=== PATIENT | male | born 1990 | race Caucasian/White ===

== ENCOUNTER 2022-07-07 15:13 | Outpatient (CLI) | payer OTHER, SELFPAY ==
[2022-07-07 20:08] LABS: Basophils Percent Auto 0.4 % (0.2-1.2); Eosinophils Absolute Auto 0.1 K/mm3 (0-0.3); Eosinophils Percent Auto 2.7 % (0-4.4); Hematocrit 39.9 % (42.0-52.0); Hemoglobin 13.4 g/dL (14.0-18.0); Immature Granulocyte Absolute 0.01 K/mm3 (0.00-0.031); Immature Granulocyte Percent A 0.2 % (0-0.5); Lymphocytes Percent Auto 38.6 % (18.3-44.2); Mean Corpuscular HGB Conc 33.6 g/dl (32-36); Mean Corpuscular Hemoglobin 31.9 pg (26-34); Mean Platelet Volume 11.6 fl (7.4-10.4); Monocytes Absolute Auto 0.5 K/mm3 (0.1-0.6); Monocytes Percent Auto 8.7 % (2.6-8.5); Neutrophils Absolute Auto 2.6 K/mm3 (1.3-6.7); Neutrophils Percent Auto 49.4 % (45.5-73.1); Platelet Count Result 165 k/mm3 (150-375); Red Cell Distribution Width 12.9 % (11.5-14.5); White Blood Count 5.2 K/mm3 (4.5-10.0)
[2022-07-07 20:16] LABS: Alanine Aminotransferase 18 U/L (6-50); Albumin Level 4.4 g/dL (3.5-5.1); Alkaline Phosphatase 65 U/L (38-126); Anion Gap 4 mmol/L (8-16); Aspartate Amino Transferase 44 U/L (17-59); Bilirubin,Total 0.3 mg/dL (0.2-1.3); Blood Urea Nitrogen 12 mg/dL (9-20); Calcium 9.2 mg/dL (8.4-10.2); Carbon Dioxide 31 mmol/L (22-30); Chloride 102 mmol/L (98-107); Estimated Glomerular Filt Rate > 60; Glucose 72 mg/dL (65-110); Phenytoin Dilantin 3 ug/mL (10-20); Potassium 4.1 mmol/L (3.4-5.0); Sodium 137 mmol/L (137-145)
== END 2022-07-07 15:14 | disposition home or self-care (01) ==
LOC: ANHGOSHLAB 15:15
PROVIDERS: PCP Family Medicine; Visit Provider Family Medicine
DX: G40.909 Epilepsy, unspecified, not intractable, without status epilepticus (principal)
CPT/HCPCS: 36415; 80053; 80185; 85025

== ENCOUNTER 2022-08-15 09:08 | Emergency (ER) | payer OTHER, SELFPAY ==
--- NOTE | ~2022-08-15 | XR_ITS ---
XR chest 2V DATE: 08/15/2022 09:36 INDICATION: Seizure. Evaluate for aspiration. TECHNIQUE: AP and lateral views COMPARISON: None FINDINGS: No pulmonary infiltrate or consolidation, pleural effusion or pulmonary vascular congestion or pneumothorax. Normal heart size. No hilar or mediastinal enlargement Included skeletal structures are unremarkable. IMPRESSION: Negative Reviewed, dictated and finalized at location A. IMPRESSION: Negative
[2022-08-15 09:15] VITALS: BP 110/72; PULSE 59; RESP 18; TEMP 36.4; O2SAT 100
--- NOTE | 2022-08-15 09:28 | ED.SEIZURE ---
HPI - Seizure General Chief Complaint: Seizure Stated Complaint: seizure Time Seen by Provider: 08/15/22 09:16 Source: patient and family Mode of arrival: EMS Limitations: no limitations History of Present Illness HPI Narrative: Patient is a 31 y/o male who presents to the ED via EMS with c/o seizure. at bedside assisted in providing information. Patient has a Hx of seizure disorder for the last 5-7 years. He has seen an epileptologist in the past. Patient has been on Keppra 1000mg BID and Phenytoin 200mg BID for his seizures. His primary care doctor took him off his medications 3 to 4 days ago to start a 30-day Holter monitor to determine if these epileptic episodes were related to syncope versus arrhythmia. Patient had a brief seizure episode yesterday, which captured on video camera. This morning, patient had another seizure episode, which was longer and lasted approximately 4 minutes. Patient did have a postictal period after today's episode, which EMS reported upon their arrival. Patient states he feels like he is coming back to normal. He does complain of muscle soreness and fatigue, but denies nausea, vomiting, chest pain, shortness of breath, abdominal pain, headache, dizziness, lightheadedness. Denied any head injury. Denied incontinence. Patient did bite his tongue in today's episode. Related Data Home Medications Medication Instructions Recorded Confirmed cholecalciferol (vitamin D3) 50 50 mcg PO DAILY 07/07/22 07/09/22 mcg/drop (2,000 unit/drop) oral drops levetiracetam 1,000 mg tablet 1,000 mg PO Q12H 07/07/22 07/09/22 Allergies Allergy/AdvReac Type Severity Reaction Status Date / Time No Known Allergies Allergy Unverified 07/09/22 15:41 Review of Systems Review of Systems: CONSTITUTIONAL: Denies fever, chills, or sweats. EYES: Denies visual changes. ENT: See HPI. CARDIOVASCULAR: Denies chest pain. RESPIRATORY: Denies dyspnea. GASTROINTESTINAL: Denies abdominal pain, nausea, vomiting. GENITOURINARY: Denies incontinence, dysuria or hematuria. MUSCULOSKELETAL: Reports myalgia. NEUROLOGIC: See HPI. All systems reviewed & are unremarkable except as noted in HPI and below PMFSH Past Medical History Medical History Seizure disorder Surgical History Surgical History H/O right knee surgery Social History Social History Smoking status: Smoker, status unknown Smokeless tobacco user: chewing tobacco Alcohol intake: never Lack of Transportation: No Lack of Food: Never True Current Housing: I Have Housing Concerned About Future Housing: No Difficulty Paying Gas/Electric Bills: No Difficulty Paying for Meds: No Currently Unemployed: No Education: High School Diploma/GED Difficulty w/ Childcare or Family Care: No Exam Narrative: GENERAL: Well appearing, thin, non-toxic, in no acute distress. HEAD: Normocephalic, atraumatic. EYES: PERRL/EOMI, conjunctivae clear bilaterally. Slight bilateral fatigable nystagmus. ENT: MMs slightly dry. Small bite to tip of tongue, no active bleeding. NECK: Supple. No adenopathy, no masses. RESPIRATORY: Airway patent, respirations nonlabored. Clear to auscultation bilaterally, no rales, rhonchi, wheezing. CARDIOVASCULAR: Regular rate and rhythm without murmurs, rubs, or gallops. Radial and pedal pulses 2+ and equal bilaterally. ABDOMINAL: Soft, nontender, nondistended, no hepatosplenomegaly. Normoactive BS. MUSCULOSKELETAL: Moves all extremities. Strength/ROM intact without gross deformities. No edema. SKIN: Warm, dry, normal color. No rashes. NEURO: A&O X4. Speech clear. Follows commands. CN II-XII intact. Sensation grossly intact. No ataxic movements. Strength 5/5 in upper and lower extremities bilaterally. [id number]-[id number]-hged and [id number]-[id number] testing intact bilat
--- NOTE | 2022-08-15 09:30 | ECG_ITS ---
Measurements Intervals [place] Rate: 56 P: 54 NV: 189 QRS: 22 QRSD: 86 T: 36 QT: 395 QTc: 383 Interpretive Statements SINUS BRADYCARDIA BORDERLINE ECG NO PREVIOUS ECG AVAILABLE FOR COMPARISON Electronically Signed On 08-15-2022 13:53:58 CDT by Butch Marte M.D.
[2022-08-15 10:13] LABS: Basophils Percent Auto 0.1 % (0.2-1.2); Eosinophils Percent Auto 0.3 % (0-4.4); Hematocrit 42.5 % (42.0-52.0); Hemoglobin 14.3 g/dL (14.0-18.0); Immature Granulocyte Absolute 0.05 K/mm3 (0.00-0.031); Immature Granulocyte Percent A 0.5 % (0-0.5); Lymphocytes Absolute Auto 0.78 K/mm3 (0.9-3.2); Lymphocytes Percent Auto 7.6 % (18.3-44.2); Mean Corpuscular HGB Conc 33.6 g/dl (32-36); Mean Corpuscular Hemoglobin 32.3 pg (26-34); Mean Corpuscular Volume 95.9 fl (80-100); Mean Platelet Volume 11.1 fl (7.4-10.4); Monocytes Absolute Auto 0.6 K/mm3 (0.1-0.6); Monocytes Percent Auto 6.1 % (2.6-8.5); Neutrophils Absolute Auto 8.8 K/mm3 (1.3-6.7); Neutrophils Percent Auto 85.4 % (45.5-73.1); Platelet Count Result 166 k/mm3 (150-375); Red Blood Count 4.43 M/mm3 (4.6-6.20); Red Cell Distribution Width 12.8 % (11.5-14.5); White Blood Count 10.3 K/mm3 (4.5-10.0)
[2022-08-15 10:29] LABS: Lactic Acid Reflex 2.5 mmol/L (0.7-2.0)
[2022-08-15 10:36] LABS: Alanine Aminotransferase 29 U/L (6-50); Albumin Level 4.6 g/dL (3.5-5.1); Alkaline Phosphatase 78 U/L (38-126); Anion Gap 10 mmol/L (8-16); Aspartate Amino Transferase 35 U/L (17-59); Bilirubin,Total 0.4 mg/dL (0.2-1.3); Blood Urea Nitrogen 11 mg/dL (9-20); Calcium 9.1 mg/dL (8.4-10.2); Carbon Dioxide 24 mmol/L (22-30); Chloride 104 mmol/L (98-107); Estimated Glomerular Filt Rate > 60; Glucose 98 mg/dL (65-110); Magnesium 2.1 mg/dL (1.6-2.3); Sodium 138 mmol/L (137-145)
[2022-08-15 10:44] LABS: Troponin I 0.021 ng/mL (0.000-0.034)
[2022-08-15 10:46] VITALS: BP 118/79; PULSE 55; RESP 18; O2SAT 99
[2022-08-15] MEDS: SODIUM CHLORIDE 0.9% IV 1,000 ML 999 ML IV CONT (11:27)
[2022-08-15 13:02] VITALS: BP 119/68; PULSE 55; RESP 12; O2SAT 100
[2022-08-15 13:11] LABS: Reflex Lactic Acid Yes or No Add Lactic
[2022-08-15 13:29] LABS: Lactic Acid 0.8 mmol/L (0.7-2.0)
[2022-08-15 13:44] LABS: Troponin I 0.052 ng/mL (0.000-0.034)
[2022-08-15 14:08] LABS: Prothrombin Time 12.7 Seconds (11.1-14.7)
[2022-08-15] MEDS: ASPIRIN 81 MG CHEWABLE TABLET 324 MG PO (14:08)
[2022-08-15 14:09] VITALS: BP 118/69; PULSE 52; RESP 18; O2SAT 100
[2022-08-15 14:09] LABS: Partial Thromboplastin Time 27.8 SECONDS (22.3-36.8)
[2022-08-15 14:14] LABS: D Dimer 0.38 ug/mL (<0.48)
== END 2022-08-15 14:31 | disposition left against medical advice (07) ==
PROVIDERS: Emergency Provider Physician Assistant; PCP Family Medicine
DX: G40.909 Epilepsy, unspecified, not intractable, without status epilepticus (principal); R77.8 Other specified abnormalities of plasma proteins; R00.1 Bradycardia, unspecified
CPT/HCPCS: 36415; 71046; 80053; 83605; 83735; 84484; 85025; 85380; 85610; 85730; 93005; 96361; 96365; 99284; A9270; J7030

== ENCOUNTER 2022-08-16 13:42 | Outpatient (CLI) | payer OTHER, SELFPAY ==
[2022-08-16 20:16] LABS: Alanine Aminotransferase 33 U/L (6-50); Albumin Level 4.4 g/dL (3.5-5.1); Alkaline Phosphatase 69 U/L (38-126); Anion Gap 7 mmol/L (8-16); Aspartate Amino Transferase 57 U/L (17-59); Bilirubin,Total 0.4 mg/dL (0.2-1.3); Blood Urea Nitrogen 10 mg/dL (9-20); Calcium 9.1 mg/dL (8.4-10.2); Carbon Dioxide 29 mmol/L (22-30); Chloride 105 mmol/L (98-107); Creatine Kinase 752 U/L (55-170); Estimated Glomerular Filt Rate > 60; Glucose 107 mg/dL (65-110); Sodium 141 mmol/L (137-145)
[2022-08-16 20:28] LABS: Troponin I < 0.012 ng/mL (0.000-0.034)
== END 2022-08-16 13:43 | disposition home or self-care (01) ==
LOC: ANHGOSHLAB 13:44
PROVIDERS: PCP Family Medicine; Visit Provider Nurse Practitioner Family
DX: G40.909 Epilepsy, unspecified, not intractable, without status epilepticus (principal); R77.8 Other specified abnormalities of plasma proteins
CPT/HCPCS: 36415; 80053; 82550; 84484

== ENCOUNTER 2022-10-06 14:34 | Outpatient (CLI) | payer OTHER, SELFPAY ==
--- NOTE | 2022-10-06 14:46 | ECHO_ITS ---
Patient Info Name: Vinayak Zavala Age: 32 years : 1990 Gender: Male Ht: 70 in Wt: 150 lbs BSA: 1.83 m2 HR: 61 bpm BP: 124 / 61 mmHg Heart Rhythm: Sinus Rhythm Technical Quality: Good Exam Date: 10/06/2022 2:56 PM Exam Location: [facility] Patient Status: Outpatient Admit Date: 10/06/2022 Staff Ordering Physician: Ryan Barrientos DO Cardiology Consultant: Too Lundberg RDCS Attending Provider: Ryan Barrientos DO Referring Physician: Floyd LEAL; Exam Type: CA echo dop color flow w con Study Info Indications - syncope Complete two-dimensional, color flow and Doppler transthoracic echocardiogram is performed. Summary 1. Complete two-dimensional, color flow and Doppler transthoracic echocardiogram is performed. 2. Left ventricular chamber dimension is mildly enlarged. 3. Left ventricular systolic function is normal, estimated at 60-65%. 4. The left ventricular diastolic function is abnormal. 5. E/e' 10 is mildly elevated. 6. There is trace tricuspid valve regurgitation. 7. No pulmonary hypertension, estimated pulmonary arterial systolic pressure is 6 mmHg. Left Ventricle E/e' 10 is mildly elevated. Left ventricular chamber dimension is mildly enlarged. Left ventricular systolic function is normal, estimated at 60-65%. The left ventricular diastolic function is abnormal. Right Ventricle Right ventricular systolic function is normal and with normal TAPSE 2.1 cm. Right ventricular chamber dimension is normal. Left Atria Left atrial chamber dimension is normal. Right Atria Right atrial chamber dimension is normal. Aortic Valve The aortic valve is trileaflet. There is no aortic valve stenosis. There is no aortic valve regurgitation. Pulmonic Valve There is no pulmonic regurgitation. Mitral Valve There is no mitral valve stenosis. There is no mitral valve regurgitation. Tricuspid Valve There is trace tricuspid valve regurgitation. No pulmonary hypertension, estimated pulmonary arterial systolic pressure is 6 mmHg. Pericardium/Pleural There is no pericardial effusion. Inferior Vena Cava Normal inferior vena cava with >50% collapse upon inspiration consistent with normal right atrial pressure, 5 mmHg. Aorta The aortic root size at the sinus of Valsalva is normal. Left Ventricular Outflow Tract Name Value Normal LVOT 2D LVOT Diameter 2.28 cm LVOT Doppler LVOT Peak Gradient 5 mmHg LVOT Mean Gradient 2 mmHg LVOT VTI 22.86 cm LVOT VTI/AV VTI Ratio 1.05 LVOT Stroke Volume 92.92 ml LVOT CO 5.05 l/min LVOT CI 2.76 L/min/m2 Pulmonic Valve Name Value Normal RVOT Doppler RVOT Peak Gradient 1 mmHg PV Doppler PV Peak Gradient
== END 2022-10-06 14:35 | disposition home or self-care (01) ==
LOC: ANHCARD 14:36
PROVIDERS: PCP Family Medicine; Visit Provider Internal Medicine Cardiovascular Disease
DX: R55 Syncope and collapse (principal)
CPT/HCPCS: 93306; C8929

== ENCOUNTER 2023-09-20 13:27 | Outpatient (CLI) | payer OTHER, SELFPAY ==
[2023-09-20 18:42] LABS: Basophils Percent Auto 0.6 % (0.2-1.2); Eosinophils Absolute Auto 0.1 K/mm3 (0-0.3); Eosinophils Percent Auto 1.7 % (0-4.4); Hematocrit 43.2 % (42.0-52.0); Hemoglobin 14.4 g/dL (14.0-18.0); Immature Granulocyte Absolute 0.01 K/mm3 (0.00-0.031); Immature Granulocyte Percent A 0.1 % (0-0.5); Lymphocytes Absolute Auto 2.07 K/mm3 (0.9-3.2); Lymphocytes Percent Auto 30.2 % (18.3-44.2); Mean Corpuscular HGB Conc 33.3 g/dl (32-36); Mean Corpuscular Hemoglobin 31.9 pg (26-34); Mean Corpuscular Volume 95.8 fl (80-100); Mean Platelet Volume 11.8 fl (7.4-10.4); Monocytes Absolute Auto 0.6 K/mm3 (0.1-0.6); Monocytes Percent Auto 8.6 % (2.6-8.5); Neutrophils Percent Auto 58.8 % (45.5-73.1); Platelet Count Result 159 k/mm3 (150-375); Red Blood Count 4.51 M/mm3 (4.6-6.20); Red Cell Distribution Width 12.9 % (11.5-14.5); White Blood Count 6.9 K/mm3 (4.5-10.0)
[2023-09-20 19:25] LABS: Thyroid Stimulating Hormone Reflex 0.209 uIU/mL (0.465-4.68)
[2023-09-20 19:55] LABS: Free T4 Free Thyroxine Reflex 1.06 ng/dL (0.78-2.19)
[2023-09-20 20:15] LABS: Anion Gap 5 mmol/L (4-12); Blood Urea Nitrogen 11 mg/dL (9-20); Calcium 9.1 mg/dL (8.4-10.2); Carbon Dioxide 28 mmol/L (22-30); Chloride 105 mmol/L (98-107); Estimated Glomerular Filt Rate > 60; Glucose 73 mg/dL (65-110); Phenytoin Dilantin 5 ug/mL (10-20); Potassium 4.3 mmol/L (3.4-5.0); Sodium 138 mmol/L (137-145)
== END 2023-09-20 13:28 | disposition home or self-care (01) ==
LOC: ANHGOSHLAB 13:28
PROVIDERS: PCP Family Medicine; Visit Provider Nurse Practitioner Family
DX: G40.909 Epilepsy, unspecified, not intractable, without status epilepticus (principal); R00.1 Bradycardia, unspecified; R55 Syncope and collapse
CPT/HCPCS: 36415; 80048; 80185; 84439; 84443; 84480; 85025

== ENCOUNTER 2023-10-14 15:20 | Outpatient (CLI) | payer OTHER, SELFPAY ==
[2023-10-14 19:24] LABS: Alanine Aminotransferase 21 U/L (6-50); Albumin Level 4.2 g/dL (3.5-5.1); Alkaline Phosphatase 93 U/L (38-126); Aspartate Amino Transferase 32 U/L (17-59); Bilirubin,Total 0.3 mg/dL (0.2-1.3)
[2023-10-14 19:47] LABS: Thyroid Stimulating Hormone 0.781 uIU/mL (0.465-4.680)
[2023-10-17 14:03] LABS: Thyroid Peroxidase Antibodies 1 IU/mL (<9)
== END 2023-10-14 15:21 | disposition home or self-care (01) ==
LOC: ANHGOSHLAB 15:21
PROVIDERS: PCP Family Medicine; Visit Provider Nurse Practitioner Family
DX: R79.89 Other specified abnormal findings of blood chemistry (principal); G40.909 Epilepsy, unspecified, not intractable, without status epilepticus
CPT/HCPCS: 36415; 80076; 84443; 86376

== ENCOUNTER 2024-11-28 12:42 | Outpatient (CLI) | payer OTHER, SELFPAY ==
--- OUTSIDE RECORDS SUMMARY | 2024-11-28 12:45 | XMS_ITS | Clinical Summary ---
Author Organization [email or web address] Address [address] [place] [address] Care Team Providers Care Poultry Scientist Name Role Phone Ariel Giron MD Primary Care Provider [phone] Source Comments [email or web address],non-owned Affiliates and Associated Physician Practices is amultiple site organization consisting of ambulatory clinics and hospital sitesin [place], [place], [place] and [place]. This disclosure is being madepursuant to the Care Everywhere program and may not contain all information available regarding this patient. Last updated 18.[email or web address] Allergies No known active allergies Medications * Be aware that medications may not be up to date on this document. Always verify current medications with the patient. levETIRAcetam (Keppra) 1000 MG tablet Take 1 (one) tablet by mouth 2 times daily 07/24/2022 Active phenytoin ER (Dilantin) 100 MG capsule Take 2 (two) capsules by mouth 2 times daily 07/09/2022 Active Active Problems Problem Noted Date Diagnosed Date Seizures 10/25/2022 Syncope and collapse 10/03/2022 Family History Medical History Relation Name Comments Migraine Mother tension headach es Relation Name Status Comments Brother Alive Father Alive Mother Alive Social History Tobacco Use Types Packs/Day Years Used Date Smoking Tobacco: Never Smokeless Tobacco: Current Tobacco Cessation:Ready to Q uit: Not Asked; Counseling Given: Not Answered Alcohol Use Standard Drinks/Week Comments No 0 (1 standard drink = 0.6 oz pur e alcohol) Sex and Gender Information Value Date Recorded Sex Assigned at Male 09/29/2022 12:56 PM CDT Legal Sex Male 3:41 PM [employer] Gender Identity Male 09/29/2022 12:56 PM CDT Sexual Orientation Straight 09/29/2022 12 :56 PM CDT Last Filed Vital Signs Vital Sign Reading Time Taken Comments Blood Pressure 125/79 10/31/2022 9:03 AM CDT Pulse 75 10/31/2022 9:03 AM CDT Temperature 36.3 C (97.4 F) 10/31/2022 9:03 AM CDT Respiratory Rate 16 10/31/2022 9:03 AM CDT Oxygen Saturation 98% 10/31/2022 9:03 AM CDT Inhaled Oxygen Concentration - - Weight 68 kg (150 lb) 09/29/2022 1:12 PM CDT Height 177.8 cm (5' 10) 09/29/2022 1:12 PM CDT Body Mass Index 21.52 09/29/2022 1:12 PM CDT Plan of Treatment Health Maintenance Due Date Last Done Comments HIV SCREENING 08/21/2007 HEPATITIS C SCREENING 08/16/2010 DTAP/TDAP/TD VACCINES (1 - Tdap) 08/21/2011 HEPATITIS B VACCINE (1 of 3 - 19+ 3-dose series) 08/21/2011 HPV VACCINE (1 - 3-dose SCDM series) 08/21/2019 COVID-19 VACCINE (1 - 2023-2 5 season) 2024 DEPRESSION SCREENING 05/09/2024 INFLUENZA VACCINE (#1) 2025 07/09/2022 ZOSTER VACCINE (1 of 2) 2042 HIB VACCINE Aged Out No longer eligi ble based on patient's age to complete this topic MENINGOCOCCAL (Group B) VACC INE SHARED DECISION-MAKING Aged Out No longer eligibl e based on patient's age to complete this topic MENINGOCOCCAL GROUPS A/C/Y/W VACCINE Aged Out No longer eligible b ased on patient's age to complete this topic PNEUMOCOCCAL VACCINE Aged Out No long er eligible based on patient's age to complete this topic Insurance MEDICAID - [facility] Advance Directives * Full Code (Latest Code Status on File) Date Activated Date Inactivated Comments 10/25/2022 9:30 AM 10/31/2022 1:16 PM Care Teams Poultry Scientist Relationship Specialty Start Date End Date Ariel Giron MD [address] [place] [phone] PCP - General Family Medicine 10/25/22
[2024-11-28 14:59] LABS: Hematocrit 40.6 % (42.0-52.0); Hemoglobin 13.7 g/dL (14.0-18.0); Immature Granulocyte Percent A 0.4 % (0-0.5); Lymphocytes Absolute Auto 1.66 K/mm3 (0.9-3.2); Mean Corpuscular HGB Conc 33.7 g/dl (32-36); Mean Corpuscular Hemoglobin 31.4 pg (26-34); Mean Corpuscular Volume 93.1 fl (80-100); Nucleated Red Blood Cells Absolute Auto 0.000 K/mm3 (0.0-0.012); Nucleated Red Blood Cells Perc 0.0 % (0.0-0.2); Platelet Count Result 167 k/mm3 (150-375); Red Blood Count 4.36 M/mm3 (4.6-6.20); White Blood Count 5.4 K/mm3 (4.5-10.0)
[2024-11-28 15:39] LABS: Alanine Aminotransferase 17 U/L (6-50); Albumin Level 4.5 g/dL (3.5-5.1); Alkaline Phosphatase 83 U/L (38-126); Anion Gap 8 mmol/L (4-12); Aspartate Amino Transferase 32 U/L (17-59); Bilirubin,Total 0.1 mg/dL (0.2-1.3); Blood Urea Nitrogen 12 mg/dL (9-20); Calcium 9.1 mg/dL (8.4-10.2); Carbon Dioxide 26 mmol/L (22-30); Chloride 102 mmol/L (98-107); Cholesterol 222 mg/dL (0-200); Estimated Glomerular Filt Rate > 60; Glucose 91 mg/dL (65-110); HDL Direct 63 mg/dL; Potassium 4.3 mmol/L (3.4-5.0); Sodium 136 mmol/L (137-145); Total Protein 7.4 g/dL (6.3-8.2); Triglycerides 158 mg/dL (<150)
[2024-11-28 15:58] LABS: Thyroid Stimulating Hormone Reflex 1.240 uIU/mL (0.465-4.68)
== END 2024-11-28 12:43 | disposition home or self-care (01) ==
PROVIDERS: PCP Family Medicine; Visit Provider Nurse Practitioner Family
DX: G40.909 Epilepsy, unspecified, not intractable, without status epilepticus (principal); G40.209 Localization-related (focal) (partial) symptomatic epilepsy and epileptic syndromes with complex partial seizures, not intractable, without status epilepticus; R79.89 Other specified abnormal findings of blood chemistry
CPT/HCPCS: 36415; 80053; 80061; 80185; 84443; 85025